=== PATIENT | male | born 1945 | race Two or more races ===

== ENCOUNTER 2021-02-24 06:43 | Day surgery (SDC) | payer OTHER | END 2021-02-24 12:20 | disposition home or self-care (01) | LOC: AMB-ENDOS 06:43 | PROVIDERS: ATTEND Colon & Rectal Surgery | DX: D12.4 Benign neoplasm of descending colon (principal); D17.5 Benign lipomatous neoplasm of intra-abdominal organs; Z20.822 Contact with and (suspected) exposure to COVID-19; Z12.11 Encounter for screening for malignant neoplasm of colon ==

== ENCOUNTER 2024-01-05 06:21 | Day surgery (SDC) | payer OTHER ==
[~2024-01-05] VITALS: Ht 167.6 cm; Wt 68.0 kg
[~2024-01-05 06:21] MED LIST: LIPITOR20 MG PO; PROSCAR5 MG PO
[2024-01-05] MEDS ORDERED: METRONIDAZOLE/SODIUM CHLORIDE 500 MG/100 ML PIGGYBACK IV ONE ×2 (07:13→08:15)
[2024-01-05] MEDS ORDERED: CEFTRIAXONE SODIUM 2,000 MG VIAL ONE (07:13)
[2024-01-05] MEDS ORDERED: HEMOSTATIC MATRIX 1 KIT KIT TOP ONE (07:16)
[2024-01-05] MEDS ORDERED: BUPIVACAINE HCL/PF 0.5% 30ML ML ONE (07:16)
[2024-01-05] MEDS ORDERED: LIDOCAINE HCL/EPINEPHRINE 10MG/ML 1% 50ML IJ ONE ×2 (07:16→08:15)
[2024-01-05] MEDS ORDERED: POVIDONE-IODINE 118 ML BOTT TOP ONE ×3 (07:16→08:15)
[2024-01-05] MEDS ORDERED: DIBUCAINE 30 GM TUBE ONE (07:16)
[2024-01-05] MEDS ORDERED: NEURONTIN300 MG PO (07:56)
[2024-01-05] MEDS ORDERED: COLACE100 MG PO (07:56)
[2024-01-05] MEDS ORDERED: TRAM1TAB98 PO (07:56)
[2024-01-05] MEDS ORDERED: DIBUCAINE 30 GM TUBE RECTAL ONE (08:15)
[2024-01-05] MEDS ORDERED: BUPIVACAINE HCL 30 ML VIAL IJ ONE (08:15)
[2024-01-05] MEDS ORDERED: HEMOSTATIC MATRIX WITH THROMBIN KIT TOP ONE (08:15)
[2024-01-05] MEDS ORDERED: CEFTRIAXONE SODIUM 2,000 MG VIAL IV ONE (08:15)
[2024-01-05] MEDS ORDERED: METRONIDAZOLE500 MG PO (08:31)
== END 2024-01-05 15:00 | disposition home or self-care (01) ==
LOC: CIR.AMB 06:21
PROVIDERS: ATTEND Surgery
DX: D12.9 Benign neoplasm of anus and anal canal (principal); K64.4 Residual hemorrhoidal skin tags; K62.89 Other specified diseases of anus and rectum; I10 Essential (primary) hypertension